=== PATIENT | male | born 1975 | race Caucasian/White ===

== ENCOUNTER 2016-09-29 15:44 | Inpatient (IN) | payer OTHER ==
--- NOTE | ~2016-09-29 | CR71 ---
[facility] A Service of [facility] & [facility] RADIOLOGY TEXT RESULTS PATIENT: KARLOS STEELE LOCATION: [place] [id number] : [birth year] UNIT #: [id number] AGE: [address]: Wally Acosta MD SEX: M ORDER DR: [id number] [place] [id number] [facility] [place] [facility]. [place], [place] [address] [id number] I MR#: [id number] Acc #: [id number] NAME: KARLOS STEELE : 1975 SEX: M STUDY DATE/TIME: 10/01/2016 6:38 UNIT: [facility] ROOM: [facility] STUDY DESCRIPTION: CR Chest Single View Attending Physician: Wally Acosta M.D. Ordering Physician: Lukas Arnold M.D. Primary Care Physician: No Primary Care Physician MEDICAL IMAGING REPORT This report is preliminary unless electronic signature is present EXAM Portable chest. INDICATION Respiratory failure, follow up endotracheal tube. Symptoms for 2 days. FINDINGS A portable view of the chest was obtained. The endotracheal tube and PIC catheter are stable. There are low lung volumes with mild basilar atelectasis and the heart size is normal. Dictated by... Logan Torres M.D. THIS IS AN ELECTRONICALLY VERIFIED REPORT Logan Torres M.D. at 10/01/2016 1:11 PM SHANTEL/jami TD: 10/01/2016 12:32 JOB #: [id number] MEDICAL IMAGING REPORT COPY
--- NOTE | ~2016-09-29 | EKG ---
PATIENT: KARLOS STEELE UNIT #: [id number] Ventricular Rate: 94 BPM Atrial Rate: 94 BPM P-R Interval: 154 ms QRS Duration: 94 ms Q-T Interval: 346 ms QTC Calculation(Bezet): 432 ms P [place]: 75 degrees Calculated R [place]: 79 degrees Calculated T [place]: 65 degrees Diagnosis Line: Normal sinus rhythm Diagnosis Line: Normal ECG Diagnosis Line: When compared with ECG of 12-DEC-2014 05:47, Diagnosis Line: No significant change was found Diagnosis Line: Confirmed by JUN PULLIAM MD ([id number]) on Diagnosis Line: 09/29/2016 5:26:57 PM INTERPRETING MD: ANDREW
--- NOTE | ~2016-09-29 | A ---
[facility] Nutrition Therapy DATE: 09/30/16 Patient: KARLOS STEELE Physician: MARCELINO Address: [facility] SURJIT TORRES Room/Bed: [address], Zip: [place] [address] Admit Date: 09/29/16 Date of : [birth year] Height: 5 8 Weight: 251 114 NUTRITIONAL ASSESSMENT: REASON: NPO STATUS IN ICU 41 yo male admitted for resuscitated arrest after OD PMH: Substance abuse, anxiety, depression, CHF Anthropometrics: Ht: 68" Wt: 113 kg BMI: 37.9 IBW: 70 kg Labs: Gluc 149 BUN 24 AST 51 ALT 58 Accuchecks 142-148 Meds: Versed, fentanyl, NaCl, novolog, lopressor, zofran, MgSO4, KCl, protonix I/O & Bowel function: 1917/1125, last BM 09/29 FMS Skin Integrity: No breakdown noted Edema: none noted Estimated Nutrition Needs: 5089-5562 kcals (12-15 kcals/kg) 105-140 grams protein (1.5-2.0 grams/kg) Assessment: Chart reviewed, events noted. Pt admitted for resuscitated arrest after OD. Pt is intubated and sedated in the ICU, with no nutrition support plans at this time. RD will provide enteral nutrition recommendations below. Dx: Inadequate nutrient intake RT clinical condition AEB NPO status. Intervention: 1. Enteral nutrition once medically feasible Monitoring, Evaluation and Goals: 1. Enteral nutrition; provide >80% goal volume x 24 hrs 2. Labs; WNL 3. Weight; prevent unintentional weight loss Recommendations: 1. Once medically feasible, would consider initiating enteral nutrition with Jevity 1.5 @ 20 mL/hr + 30 mL Prostat TID. Increase by 10 mL q 8 hrs as tolerated to goal of 40 mL/hr + 30 mL Prostat TID. This would provide: 1740 kcals/ 106 grams protein/ 730 mL free H20 [facility] Nutrition Therapy DATE: 09/30/16 Patient: KARLOS STEELE Physician: MARCELINO Address: [address] Room/Bed: [address], Zip: [place] [address] Admit Date: 09/29/16 Date of : [birth year] Height: 5 8 Weight: 251 114 2. If the pt is extubated, recommend SR ACCOUNT EXECUTIVE evaluation to determine if he can safely tolerate PO intake. Pt is at moderate-severe nutritional risk. RD will follow hospital course. Respectfully, DAINA ANNE RD, LD [employer] and [employer] [facility] cc: client file
--- NOTE | ~2016-09-29 | CR72 ---
[facility] A Service of [facility] RADIOLOGY TEXT RESULTS PATIENT: KARLOS STEELE [facility] [birth year] UNIT #: [id number] AGE: [address]: Oneida Pierre MD SEX: M ORDER DR: [id number] [facility] [address] [facility]. [place], [place] [address] [id number] E MR#: [id number] Acc #: [id number] NAME: KARLOS STEELE : 1975 SEX: M STUDY DATE/TIME: 09/29/2016 15:51 UNIT: [facility] ROOM: STUDY DESCRIPTION: CR Chest Single View Portable Attending Physician: Natanael Akers M.D. Ordering Physician: Natanael Akers M.D. Primary Care Physician: Primary Care Physician No MEDICAL IMAGING REPORT This report is preliminary unless electronic signature is present EXAM Portable chest HISTORY Intubation today. Respiratory failure. FINDINGS ETT tip is 6.5 cm above the kiko. Cardiac size and pulmonary vascularity are normal. Lungs are clear. No infiltrates or effusions. Dictated by... Hudson Spicer M.D. THIS IS AN ELECTRONICALLY VERIFIED REPORT Hudson Spicer M.D. at 09/29/2016 11:39 PM DFL/psc TD: 09/29/2016 19:10 JOB #: [id number] MEDICAL IMAGING REPORT COPY
--- NOTE | ~2016-09-29 | HP ---
Unit #: [id number] #: [id number] Patient: KARLOS STEELE [id number] [address] [place], [place] [address] [id number] E MR#: [id number] NAME: KARLOS STEELE ROOM: Age: 41 Sex: M Admission Date: 09/29/2016 : 1975 Attending Physician: Natanael Akers M.D. HISTORY AND PHYSICAL CHIEF COMPLAINT Altered mental status, resuscitated arrest. HISTORY OF PRESENT ILLNESS The patient is a 41-year-old male with a past medical history of substance abuse, CHF, anxiety, and depression, who presented to the emergency department for evaluation of the above. History is obtained from chart review and discussion with ER staff due to the patient's altered mental status. The patient was apparently found unresponsive by family. An empty pill bottle was found on the patient. Per the patient's friend and girlfriend at the bedside, the patient possibly took nine Xanax "footballs" and drank a couple of beers. Additionally, he snorted a point of heroin. It is unclear if he had any suicidal ideations. He received 1 mg of epinephrine, as well as 6 mg of Narcan and an amp of bicarbonate prior to arrival. Estimated down time was approximately 10 minutes. He was initially in asystole, followed by PEA. Upon arrival in the emergency department, the patient's temperature was 97, pulse 116, respirations 18, and blood pressure 240/140. CT of the head showed nothing acute. Chest x-ray showed nothing acute. Laboratory is notable for a lactic acid of 10.1, white blood cell count of 12.4, and potassium is 3. He is being admitted to [facility] for evaluation and further treatment. Of note, the patient has had no neurologic activity. He is not requiring any sedation. PAST MEDICAL HISTORY 1. Admission to [facility] December 09, 2014, for acute respiratory failure, aspiration pneumonia, and overdose. Toxicology screen at that time was positive for benzodiazepines, cocaine, and opiates. 2. Congestive heart failure. An echocardiogram on December 09, 2014, showed an ejection fraction of 15% to 20% with Doppler flow pattern suggestive of impaired left ventricular relaxation. Moderate to severe tricuspid regurgitation was also noted. He was seen by Dr. Tipton during that admission. 3. Depression and anxiety. PAST SURGICAL HISTORY None. Unit #: [id number] #: [id number] Patient: KARLOS STEELE SOCIAL HISTORY The patient smokes a pack of cigarettes daily. He has a history of alcohol and illicit drug use. FAMILY HISTORY Unobtainable. ALLERGIES No known allergies. HOME MEDICATIONS Unknown. REVIEW OF SYSTEMS A 10-point review of systems is unobtainable from the patient due to altered mental status. PHYSICAL EXAMINATION VITAL SIGNS: Temperature is 97, pulse 116, respirations 18, and blood pressure 240/140. GENERAL: Patient is a male who is completely unresponsive. HEENT: Head is atraumatic. Pupils are pinpoint and not reactive. Mucous membranes are moist. NECK: Supple. Trachea is midline. CARDIOVASCULAR: Regular rate and rhythm. LUNGS: Scattered rhonchi. ABDOMEN: Soft with bowel sounds present in all four quadrants. EXTREMITIES: Nontender with no pedal edema. NEUROLOGIC: Patient is completely unresponsive. He is not requiring any sedation. PSYCHIATRIC: Unable to assess. SKIN: Skin of examined areas is warm and dry. DIAGNOSTIC STUDIES LABORATORY: Complete blood count notable for white blood cell count of 12.4. Troponin is less than 0.05. Urinalysis is notable for 2+ protein, 100 glucose, and 1+ blood. INR is 1. Lactic acid 10.1. Urine toxicology screen is positive for benzodiazepines. Blood alcohol level is 19. Comprehensive metabolic panel is notable for a potassium of 3, bicarb is 15, anion gap is 22. AST and ALT are 46 and 61, respectively. Arterial blood gas shows a pH of 7.26, PCO2 of 31.8, and PO2 of 378 on assist control with an FIO2 of 100%. IMAGING: Chest x-ray shows no infiltrate. CT of the head shows nothing acute. CARDIOLOGY: EKG shows normal sinus rhythm with a rate of 94 beats per minute. ASSESSMENT The patient is a 41-year-old male with: 1. Status post resuscitated arrest with approximately 10 minutes of down time. The patient has not had any neurologic activity during his course in the emergency department. 2. Multiple substance overdose. The patient reportedly took Xanax, as well as drank a few beers and snorted heroin. His toxicology screen is positive for benzodiazepines. 3. Possible aspiration. Unit #: [id number] #: [id number] Patient: KARLOS STEELE 4. Hypokalemia. 5. Hyperglycemia. The patient does not have a known history of diabetes. 6. Transaminitis. 7. History of congestive heart failure with an ejection fraction of 10% to 15% noted in December 2014. PLAN 1. Admit to ICU. 2. Normal saline at 150 mL/hour. 3. N.p.o. 4. Serial cardiac enzymes. 5. Consult Dr. Gu regarding resuscitated arrest and vent management. 6. Consult Dr. Tipton regarding resuscitated arrest. 7. 72-hour hold, sitter, and consult Dr. Sosa if the patient is extubated and awake. 8. Blood cultures x2. 9. Sputum culture and sensitivity. 10. Procalcitonin level. 11. Zosyn 3.375 grams IV q.6 hours with first dose now. 12. Sepsis protocol with repeat lactic acid. 13. Check magnesium level. 14. Potassium/magnesium protocol. 15. Hemoglobin A1c. 16. Low-dose sliding scale insulin with Accu-Cheks. 17. Repeat labs in the morning including magnesium. 18. SCDs for DVT prophylaxis. 19. Protonix for GI prophylaxis. 20. Additional workup and consultants based on above. 21. Will discuss with the family when they are available. Thirty-eight (38) minutes critical care time spent in the care of this patient (6 p.m. to 6:38 p.m.). The patient's prognosis is extremely poor. Dictated by Grabiel Treadwell/sara TD: 09/29/2016 19:13 JOB #: [id number] HISTORY AND PHYSICAL X Oneida Pierre MD X HISTORY AND PHYSICAL
--- NOTE | ~2016-09-29 | CT71 ---
[facility] A Service of [facility] & [facility] RADIOLOGY TEXT RESULTS PATIENT: KARLOS STEELE LOCATION: [place] [address] : [birth year] UNIT #: [id number] AGE: [address]: Wally Acosta MD SEX: M ORDER DR: [id number] [facility] [address] [facility]. [place], [place] [address] [id number] I MR#: [id number] Acc #: [id number] NAME: KARLOS STEELE : 1975 SEX: M STUDY DATE/TIME: 10/01/2016 15:12 UNIT: [facility] ROOM: [facility] STUDY DESCRIPTION: CT Head Wo Contrast Attending Physician: Wally Acosta M.D. Ordering Physician: Guille Hughes M.D. Primary Care Physician: No Primary Care Physician MEDICAL IMAGING REPORT This report is preliminary unless electronic signature is present EXAM CT head without contrast, performed on 10/01/2016. HISTORY 41-year-old male with rest and with confusion. FINDINGS There is chapin sinusitis present with fluid in the frontal, ethmoid, sphenoid, and maxillary sinuses bilaterally as well as in the mastoid air cells. No middle ear opacity is seen. The osseous skull is otherwise intact. No midline shift is demonstrated, but diffuse loss of the luna-white matter interface appears present. Anoxic brain may be present. No ventricular enlargement is seen. Nuclear medicine flow study recommended for better evaluation. IMPRESSION Diffuse loss of the luna-white matter interface with diffuse anoxic injury suspected. Brain scan recommended for further evaluation. Dictated by... Kam Ramirez M.D. THIS IS AN ELECTRONICALLY VERIFIED REPORT Kam Ramirez M.D. at 10/02/2016 11:40 PM JANIE/meseret TD: 10/01/2016 18:43 JOB #: [id number] MEDICAL IMAGING REPORT COPY
--- NOTE | ~2016-09-29 | EKG ---
PATIENT: KARLOS STEELE UNIT #: [id number] Ventricular Rate: 116 BPM Atrial Rate: 116 BPM P-R Interval: 152 ms QRS Duration: 78 ms Q-T Interval: 312 ms QTC Calculation(Bezet): 433 ms P [place]: 61 degrees Calculated R [place]: 68 degrees Calculated T [place]: 57 degrees Diagnosis Line: Sinus tachycardia Diagnosis Line: Otherwise normal ECG Diagnosis Line: When compared with ECG of 29-SEP-2016 16:08, Diagnosis Line: No significant change was found Diagnosis Line: Confirmed by JOSÉ ANTONIO COOLEY MD ([id number]) on 10/02/2016 Diagnosis Line: 6:17:05 PM INTERPRETING MD: LENORA MARES
--- NOTE | ~2016-09-29 | EE ---
Unit #: [id number] #: [id number] Patient: KARLOS STEELE [id number] [address] [address] [id number] I MR#: [id number] NAME: KARLOS STEELE : 1975 SEX: M STUDY DATE/TIME: 09/30/2016 UNIT: [facility] ROOM: [facility] STUDY DESCRIPTION: EEG Attending Physician: Wally Acosta M.D. Primary Care Physician: No Primary Care Physician NEURODIAGNOSTICS REPORT EXAM EEG REASON FOR THE STUDY The patient was found down with decreased level of consciousness. EEG to rule out seizure or status. Brain protocol was not used. EEG DESCRIPTION This is an inpatient, portable, digitally recorded multi-montage adult EEG with leads placed according to the International 10-20 System. Hyperventilation and photic stimulation was not done. This is a very low amplitude, diffusely slow recording with significant beta and movement artifact. There seemed to be an artifact mostly around O1 because I could see it between T5 and O1 and P3 and O1. It may be a rocking type movement artifact about 2 Hz. The background is very low amplitude and mostly 2 to 3 Hz. I did not see any seizure, I did not see any status. There was some subtle slowing or muscle movement on the right side in the temporal leads but, again, tachycardia close to 120 to 150 and beyond that nothing suggesting reactivity, seizure, status or interictal discharges. No clinical events were seen. IMPRESSION Suboptimal EEG with very low amplitude, diffusely slow with some muscle and beta artifact, very nonspecific. Nothing suggesting seizure or status. This was not brain protocol so clinical correlation is recommended. Dictated by... Grabiel Benito/dari TD: 10/02/2016 07:17 JOB #: [id number] Unit #: [id number] #: [id number] Patient: KARLOS STEELE NEURODIAGNOSTICS REPORT X Guille Hughes MD NEURODIAGNOSTICS REPORT
--- NOTE | ~2016-09-29 | CO ---
Unit #: [id number] #: [id number] Patient: KARLOS STEELE [id number] [place], [place] [address] [id number] I MR#: [id number] NAME: KARLOS STEELE ROOM: [facility] Age: 41 Sex: M Admission Date: 09/29/2016 : 1975 Attending Physician: Wally Acosta M.D. Primary Care Physician: No Primary Care Physician CONSULTATION REPORT REASON FOR CONSULTATION Critical care management, respiratory failure. CHIEF COMPLAINT Drug overdose. HISTORY OF PRESENT ILLNESS Patient was brought in via [facility] with the complaint of drug overdose. He and his friend did some heroin, according to the patient's girlfriend standing at the bedside. I am seeing the patient at the bedside. The patient is currently unresponsive, on the ventilator. REVIEW OF SYSTEMS Unobtainable. PAST MEDICAL HISTORY 1. Aspiration pneumonia. 2. Drug overdose. 3. Acute kidney injury. 4. Biventricular heart failure. 5. Anxiety and depression. SOCIAL HISTORY Positive for drug abuse. FAMILY HISTORY None per records. PHYSICAL EXAMINATION VITAL SIGNS: Temperature 98, pulse 80, respirations 12, blood pressure 130/70. NEUROLOGIC: Unresponsive. CVS: S1, S2. RESPIRATORY: Bilateral air entry. Bilateral mild rhonchi. GI: Nontender. Soft. Bowel sounds are positive. EXTREMITIES: No edema. SKIN: No rashes, no ulcer. LYMPHATIC: No lymphadenopathy. DIAGNOSTIC STUDIES Labs and imaging have been reviewed. ASSESSMENT 1. Drug overdose. Unit #: [id number] #: [id number] Patient: KARLOS STEELE 2. Acute respiratory failure. 3. Hypokalemia. 4. Questionable anoxic brain injury. 5. Likely aspiration. 6. Lactic acidosis. PLAN At this point, plan is to continue the patient on ventilator support. IV fluids. Broad-spectrum IV antibiotics. GI and DVT prophylaxis. Neurology consultation will be needed. Will continue to monitor. Prognosis is very poor. Order troponin and two-D echo, as well. Continue current ICU core measures. Discussed with the patient's girlfriend at the bedside prognosis very poor. NOTE: Total critical care time is 50 minutes in direct critical care of this patient. Dictated by... SaGrabiel Fritz TD: 09/30/2016 09:30 JOB #: [id number] CONSULTATION REPORT X Radha Gu MD CONSULTATION REPORT
--- NOTE | ~2016-09-29 | CO ---
Unit #: [id number] #: [id number] Patient: KARLOS STEELE [id number] [place] [address] [facility]. [place], [place] [address] [id number] I MR#: [id number] NAME: KARLOS STEELE ROOM: [facility] Age: 41 Sex: M Admission Date: 09/29/2016 : 1975 Attending Physician: Wally Acosta M.D. Primary Care Physician: Primary Care Physician No Consultation Date: 09/30/2016 CONSULTATION REPORT DICTATED FOR [facility], Dr. Kenny. REASON FOR CONSULTATION Resuscitated arrest. HISTORY OF PRESENT ILLNESS The patient is a 41-year-old white male, who is known to our group from a previous admission. The patient has a medical history of questionable CHF in the echo and cath reports from 2015 are not are contradicting. The patient also has a history of GERD, anxiety, depression, and ADHD. The patient presented to the [facility] ED after he had overdosed on heroin. The patient is intubated and sedated and unable to provide any information, therefore, all information obtained from the girlfriend as well as chart review. Girlfriend states that she got a call around 3:15 p.m. yesterday from the patient's friend, who was with him at that time, stating that the patient had to be taken to the hospital due to an overdose. The patient's friend states that yesterday morning he took approximately 9 Xanax and drinks couple of beers and then he snorted heroin and apparently snorted a large quantity. He also reportedly told his friend that if he were to pass out or go down, he did not want to be resuscitated. The patient's friend then stated that the patient turned blue and he did not have a phone on him to call EMS at that time, therefore, he reportedly had to go to 3 or 4 different neighbor's houses to obtain a phone to call EMS. The downtime was reported as 10 minutes. Once EMS arrived, the patient was found to be in asystole and then PEA, but was resuscitated and brought to the hospital. The patient is currently on the ventilator, not sedated and not following any kind of commands. Last known echo was in 2014, which at that time, showed an EF of 15% to 20% with 3 to 4+ TR, 1 to 2+ MR, as well as left atrial enlargement. Cardiac cath done at that time, showed no coronary artery disease. PAST MEDICAL HISTORY 1. Questionable CHF. 2. Anxiety. 3. Depression. 4. ADHD. 5. GERD. PAST SURGICAL HISTORY None. Unit #: [id number] #: [id number] Patient: KARLOS STEELE SOCIAL HISTORY The patient is a smoker one pack per day for 26 years. The patient does drink one time a week, but not a daily drinker. The patient does use multiple drugs such as opiates and benzodiazepine, has a history of using cocaine, the girlfriend does not believe he has used any recently and this is his fifth time using heroin according to the girlfriend. The patient's last heroin use she thinks was approximately 2 years ago when he also overdosed at that time and was brought into the hospital. FAMILY HISTORY The patient's dad in his 30s from possible aneurysm. No other family history of heart disease known. REVIEW OF SYSTEMS Unable to obtain from the patient at this time due to being on the ventilator. PHYSICAL EXAMINATION GENERAL: This is a 41-year-old white male, who is on the ventilator and not responding to commands. VITAL SIGNS: Blood pressure 174/100, temperature 101.8, pulse 123, respirations 33. HEENT: Pupils are small and they do not dilate and do not follow, do not track. HEART: S1 and S2. No S3 or S4. No clicks, no rubs, no murmurs. LUNGS: Rhonchi throughout. ABDOMEN: Soft. Bowel sounds positive. Nondistended. EXTREMITIES: No swelling noted. NEUROLOGIC: The patient is not sedated, but not following any commands currently. ALLERGIES No known drug allergies. HOME MEDICATIONS None are listed on the chart. DIAGNOSTIC STUDIES LABORATORY RESULTS: Include white count of 22.4, hemoglobin 15.5, hematocrit 46.5, platelets 158. Sodium 137, potassium 4.4, chloride 105, CO2 of 21, BUN 24, creatinine 0.9, glucose 149. Mag 1.9. Troponins less than 0.05 then 0.10 then 0.89 then 0.67. Then, lactic of 3.9. UA was positive for benzos. IMAGING STUDIES: CT of the head was negative for any acute findings. Chest x-ray, lungs are clear. CARDIOVASCULAR STUDIES: EKG showed normal sinus rhythm. IMPRESSION 1. Resuscitated arrest. 2. Drug overdose. 3. Non-ST segment myocardial infarction. 4. Anxiety and depression. 5. Multiple substance overdose and multiple overdose attempts. 6. Polysubstance abuse. 7. Tobacco abuse. Unit #: [id number] #: [id number] Patient: KARLOS STEELE PLAN For now, we will check 2D echo for any LV dysfunction or valvular abnormalities. The ICU team is to manage the blood pressure at this time. We will plan to recheck labs in the morning. For now, we will plan with supportive care, it is likely that the non-STEMI is related to the cardiac arrest and shock. Once the patient stabilizes and is further recovered may consider ischemic workup if necessary. Further recommendations pending physician review. Dictated by... ANNIKA Pope TD: 09/30/2016 23:07 JOB #: [id number] CC: Rohit Kenny MD, Resident CONSULTATION REPORT X X CONSULTATION REPORT
--- NOTE | ~2016-09-29 | CR72 ---
[facility] A Service of [facility] & [facility] RADIOLOGY TEXT RESULTS PATIENT: KARLOS STEELE LOCATION: [address] : [birth year] UNIT #: [id number] AGE: [address]: Wally Acosta MD SEX: M ORDER DR: [id number] [facility] [address]. [place], [place] [address] [id number] I MR#: [id number] Acc #: [id number] NAME: KARLOS STEELE : 1975 SEX: M STUDY DATE/TIME: 09/30/2016 16:39 UNIT: [facility] ROOM: [facility] STUDY DESCRIPTION: CR Chest Single View Portable Attending Physician: Wally Acosta M.D. Ordering Physician: Lukas Arnold M.D. Primary Care Physician: Primary Care Physician No MEDICAL IMAGING REPORT This report is preliminary unless electronic signature is present EXAM Single portable AP view of the chest performed on 09/30/2016 at 1639 hours. HISTORY 41-year-old male with desaturation and heroin overdose. FINDINGS In comparison to the previous exam of 09/30/2016 at 0333 hours, there has been development of some interstitial edema bilaterally. The endotracheal tube remains stable, approximately 6 cm above the kiko, and an enteric tube is also again seen, with its tip just in the fundal region of the stomach. A PICC line has been placed on the right, with its distal tip in the SVC. No pneumothorax is noted. IMPRESSION 1. Worsening vascular congestion and pulmonary edema. 2. Placement of a right-sided PICC line with the distal tip in the SVC. 3. Stable endotracheal tube and enteric tube. Dictated by... Kam Ramirez M.D. THIS IS AN ELECTRONICALLY VERIFIED REPORT Kam Ramirez M.D. at 10/01/2016 5:34 PM JANIE/samson TD: 09/30/2016 22:27 JOB #: [id number] MEDICAL IMAGING REPORT COPY
--- NOTE | ~2016-09-29 | CR72 ---
[facility] A Service of [facility] & [facility] RADIOLOGY TEXT RESULTS PATIENT: KARLOS STEELE LOCATION: [address] : [birth year] UNIT #: [id number] AGE: [address]: Wally Acosta MD SEX: M ORDER DR: [id number] [facility] [address]. [place], [place] [address] [id number] I MR#: [id number] Acc #: [id number] NAME: KARLOS STEELE : 1975 SEX: M STUDY DATE/TIME: 09/30/2016 UNIT: [facility] ROOM: [facility] STUDY DESCRIPTION: CR Chest Single View Portable Attending Physician: Oneida Pierre M.D. Ordering Physician: Natanael Akers M.D. Primary Care Physician: Primary Care Physician No MEDICAL IMAGING REPORT This report is preliminary unless electronic signature is present EXAM Portable chest 09/30 03:33 INDICATIONS Overdose. Resuscitated arrest. FINDINGS AP portable chest compared with 12/10/1916. ET tube tip is in the mid trachea. NG tube is present with the side port at the level of the GE junction. Heart size stable. There is mild infiltrate or atelectasis in both bases. No pneumothorax. Dictated by... Burton Thomas Jr., M.D. THIS IS AN ELECTRONICALLY VERIFIED REPORT Burton Thomas Jr., M.D. at 09/30/2016 9:59 PM EDGARK/marquez TD: 09/30/2016 07:41 JOB #: [id number] MEDICAL IMAGING REPORT COPY
--- NOTE | ~2016-09-29 | CO ---
Unit #: [id number] #: [id number] Patient: KARLOS STEELE [id number] [facility] [address] [facility]. [place], [place] [address] [id number] I MR#: [id number] NAME: KARLOS STEELE ROOM: [facility] Age: 41 Sex: M Admission Date: 09/29/2016 : 1975 Attending Physician: Wally Acosta M.D. 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 PATIENT IDENTIFICATION This is a 41-year-old right-handed white male who is evaluated in ICU bed 16 at [facility]. SOURCE OF INFORMATION The medical records and my discussion with Dr. Arnold, and also my discussion with the patient's mom, the medical records, and the admitting team records. PROBLEM LIST 1. Polysubstance abuse. 2. History of prior overdose. 3. History of aspiration pneumonia. 4. History of respiratory failure because of polysubstance abuse. 5. History of congestive heart failure. 6. Depression and anxiety. 7. Apparently he is ADHD. 8. Tobacco abuse. 9. Alcohol abuse. 10. Now with hypoxic and ischemic encephalopathy. HISTORY OF PRESENT ILLNESS This is a 41-year-old male with a history of substance abuse, congestive heart failure, anxiety and depression, presented to the emergency room because he was found down. He was with his friends and he apparently took nine Xanax "footballs" and drank a couple of beers and then he snorted what they thought was heroin. Then he collapsed and he had told his friend that he does not want to be resuscitated but the friend then panicked and started going from door to door to seek some help and finally EMS was called. He was found unresponsive. He was brought in and he was intubated. He was on a ventilator. His downtime was ten minutes or more, considering that his friend went three to four different neighbors to try to get some help. When EMS arrived he was in systole and then PEA. He was resuscitated and brought to the hospital. He is on sedation right now. Except for some minimal gap type movements and possible triggering the vent, he has had no purposeful movements. He already had EEG done and the EEG showed mostly artifact but nothing suggesting seizure or status. His labs also are not really bad. His first set of labs is around 3:00 p.m. on 09/29/2016. Unit #: [id number] #: [id number] Patient: KARLOS STEELE No seizure or seizure-like activity. He had some tremors and he ended up on Keppra. He has not had any sedation since yesterday. He does see a practice nurse as an outpatient. His urine drug screen was positive for benzodiazepines and alcohol level was 19. PAST MEDICAL HISTORY As discussed above. PAST SURGICAL HISTORY Nothing major known to us. ALLERGIES None known to use. HOME MEDICATIONS Apparently we do not know any, whether he is following up with practice nurse and taking any medication. FAMILY HISTORY Mother does not report any major contributory problems. The father did have an aneurysm. SOCIAL HISTORY He apparently is single. He does drink once a week. Maybe some binge drinking. He has prior history of opiates and benzodiazepine use and has used cocaine in the past. REVIEW OF SYSTEMS Could not be obtained. PHYSICAL EXAMINATION VITAL SIGNS: Temperature is 100.8, pulse 105, respirations 26, blood pressure 112/61. No pain was reported. O2 sats were 100%. Weight of 225 pounds. When he came in his temperature was 97 degrees Fahrenheit, pulse was 116, respiration 18, blood pressure was 240/140. NEUROLOGICAL EXAMINATION: The patient has probably a Les Coma scale of 3T. There was questionable spontaneous gag type movement with some shoulder shrug type activity but I could not reproduce it with gagging him. No cough spontaneous. Obviously he is not following commands. Obvious nonverbal. CRANIAL NERVE EXAMINATION: Pupils are about 1.5 mm. (1) eye movements seem to be fixed, midline. No doll's eyes. No corneals. No ptosis. No nystagmus. Sensation on the face and scalp was absent. I did not see any facial asymmetry. Hearing is questionable. Tongue was midline. I could not visualize his oropharynx or uvula. Head turning was not seen. MOTOR EXAMINATION: I did not see any responses of any kind. SENSORY EXAMINATION: I did not see any responses of any kind. I could not get any reflexes. Toes are mute. Unit #: [id number] #: [id number] Patient: KARLOS STEELE GAIT AND COORDINATION: Could not be evaluated. DIAGNOSTIC STUDIES LABS: BUN is 24, creatinine 1.0. White count is 16.8, platelets 126. Urine drug screen was positive for benzodiazepine. Alcohol level was 19. IMAGING STUDIES: Head CT was unremarkable. NEUROLOGY STUDIES: EEG showed some slowing and artifact. IMPRESSION Likely hypoxic and anoxic encephalopathy, likely polysubstance abuse related. He may have taken something other than heroin and maybe something else, which we are unable to see on his testing. His EEG does no show seizure or status. He was brought in at 13:08 on 09/29/2016 so today is going to be 48 hours and I have discussed the case with the team in very detail. His mother would like to give him another day and see how things go. She would want to have repeat study done. It looks like he was down for quite some time. There is nothing suggesting active seizure or status or major stroke. Patient's with such condition with labs not really totally abnormal and they do not respond in 72 hours, despite (2) circulation support, they are poor prognostic picture. Most people do not make it and if they make it they are in persistent vegetative state. In the meantime if condition changes we will evaluate and treat accordingly. I will check a repeat CT and we will go from there. Keep you informed. Call if you have any other questions or concerns. Further treatment will be based on our findings and I am really concerned about the very poor prognostic picture but for followup, call if you have any other questions or concerns. Dictated by... Grabiel Benito/salas TD: 10/01/2016 13:07 JOB #: [id number] CONSULTATION REPORT X Guille Hughes MD CONSULTATION REPORT
--- NOTE | ~2016-09-29 | CT71 ---
[facility] A Service of [facility] RADIOLOGY TEXT RESULTS PATIENT: KARLOS STEELE LOCATION: [facility]3-16 : [birth year] UNIT #: [id number] AGE: [address]: Oneida Pierre MD SEX: M ORDER DR: [id number] [facility] [address]. [place], [place] [address] [id number] E MR#: [id number] Acc #: [id number] NAME: KARLOS STEELE : 1975 SEX: M STUDY DATE/TIME: 09/29/2016 16:46 UNIT: [facility] ROOM: STUDY DESCRIPTION: CT Head Wo Contrast Attending Physician: Natanael Akers M.D. Ordering Physician: Natanael Akers M.D. Primary Care Physician: Primary Care Physician No MEDICAL IMAGING REPORT This report is preliminary unless electronic signature is present EXAM CT brain without contrast HISTORY Loss of consciousness today. Decreased level of responsiveness. Drug overdose. TECHNIQUE This CT exam was performed with one or more of the following radiation dose reduction techniques: Automatic exposure control, adjustment of mA and/or kV according to patient size, and iterative reconstruction. FINDINGS CT brain without contrast demonstrates no intracranial hemorrhage, mass or edema. No midline shift or ventricular dilatation. No extraaxial fluid collection. Mild mucosal thickening in ethmoid air cells and in the sphenoid sinus bilaterally. IMPRESSION No acute intracranial findings. Dictated by... Hudson Spicer M.D. THIS IS AN ELECTRONICALLY VERIFIED REPORT Hudson Spicer M.D. at 09/29/2016 11:39 PM DFL/psc TD: 09/29/2016 19:30 JOB #: [id number] MEDICAL IMAGING REPORT [facility] A Service [facility] RADIOLOGY TEXT RESULTS PATIENT: KARLOS STEELE LOCATION: [facility]3-16 : [birth year] UNIT #: [id number] AGE: [address]: Oneida Pierre MD SEX: M ORDER DR: COPY
[~2016-09-29 15:44] MED LIST: CLEOCIN PO; COREG3.125 MG PO; LISINOPRIL2.5 MG PO
[2016-09-29 15:48] LABS: BASOPHIL# 0.1 X10e3 (0-0.3); BASOPHIL% 0.5 % (0-2.5); EOSINOPHIL# 0.1 X10e3 (0-0.7); EOSINOPHIL% 0.7 % (0.0-7.0); HEMATOCRIT 47.3 % (38.0-50.0); HEMOGLOBIN 15.5 gm/dL (13.0-16.0); LYMPHOCYTE# 4.1 X10e3 (1.0-3.5); LYMPHOCYTE% 32.7 % (17.0-45.0); MEAN CELL VOLUME 93.2 FL (83-96); MEAN CORPUSCULAR HEMOGLOBIN 30.5 PG (28-34); MEAN CORPUSCULAR HGB CONC 32.7 g/dL (30-36); MEAN PLATELET VOLUME 9.7 FL (6.5-11.5); MONOCYTE# 0.8 X10e3 (0-1.0); MONOCYTE% 6.6 % (3.0-12.0); NEUTROPHIL# 7.4 X10e3 (1.5-7.1); NEUTROPHIL% 59.5 % (40-75); PLATELET COUNT 159 X10e3 (140-420); RED BLOOD COUNT 5.08 X10e (3.90-5.60); RED CELL DISTRIBUTION WIDTH 13.2 % (11.0-15.5); WHITE BLOOD COUNT 12.4 X10e3 (4.0-10.5)
[2016-09-29 15:49] LABS: URINE SOURCE CLEAN CATCH
[2016-09-29 15:51] LABS: DIFF IND NO
[2016-09-29 15:53] LABS: POC - CKMB 2.4 ng/mL (0.0-7.9); POC - TROPONIN <0.05 ng/mL (<=0.05)
[2016-09-29 15:55] LABS: URINE APPEARANCE CLEAR; URINE BILIRUBIN NEG (NEG); URINE BLOOD 1+ (NEG); URINE COLOR YELLOW; URINE GLUCOSE 100 MG/DL (NEG); URINE KETONE NEG (NEG); URINE LEUKOCYTE ESTERASE NEG (NEG); URINE NITRATE NEG (NEG); URINE PH 6.5 (5-8); URINE PROTEIN 2+ (NEG); URINE SPECIFIC GRAVITY 1.008 (1.003-1.035); URINE UROBILINOGEN 0.2 MG/DL (NEG)
[2016-09-29 15:58] LABS: URBCS1 AUWI 0-2 /[HPF] (0-2); URINE BACTERIA AUWI NEG (NEGATIVE); URINE SQUAMOUS EPITHELIAL CELL FEW /[HPF]
[2016-09-29 16:01] LABS: CULTURE INDICATED? NO
[2016-09-29 16:03] LABS: PARTIAL THROMBOPLASTIN TIME 26.5 SECONDS (23.5-31.3); PROTHROMBIN TIME (PATIENT) 10.7 SECONDS (9.6-11.5)
[2016-09-29 16:08] LABS: AMPHETAMINE NEG (NEG); BARBITURATES NEG (NEG); BENZODIAZEPINES POS (NEG); COCAINE NEG (NEG); MARIJUANA NEG (NEG); OPIATES NEG (NEG); TRICYCLIC ANTIDEPRESSANTS NEG (NEG); U METHADONE NEG (NEG)
[2016-09-29 16:13] LABS: ALBUMIN SERUM 4.1 g/dL (3.5-5.0); ALKALINE PHOSPHATASE 79 U/L (32-92); ALT (SGPT) 61 U/L (10-40); AST (SGOT) 46 U/L (10-42); BILIRUBIN, DIRECT 0.1 mg/dL (0.0-0.2); BILIRUBIN,INDIRECT 0.6 mg/dL (0.0-0.9); BILIRUBIN,TOTAL 0.7 mg/dL (0.2-2.0); BLOOD UREA NITROGEN 18 mg/dL (9-23); CALCIUM SERUM 8.7 mg/dL (8.4-10.2); CARBON DIOXIDE 15 mmol/L (22-31); CHLORIDE 101 mmol/L (100-111); CREATININE SERUM 1.2 mg/dL (0.6-1.4); GLOM FILT RATE Estimated ABOVE60 mL/min (>60); GLUCOSE FASTING 243 mg/dL (70-110); PROTEIN TOTAL SERUM 7.3 g/dL (6.0-8.3); SODIUM 138 mmol/L (135-145)
[2016-09-29 16:20] LABS: ARTERIAL BLD GAS O2 SATURATION 97.5 % (90.0-100.0); ARTERIAL BLOOD GAS CARBOXY HB 1.3 %sat (0.0-9.0); ARTERIAL BLOOD GAS HCO3 14.4 mmol/L; ARTERIAL BLOOD GAS MET HB 1.1 %sat (0.0-2.0); ARTERIAL BLOOD GAS PCO2 31.8 mmHg (35.0-45.0); ARTERIAL BLOOD GAS pH 7.264 (7.350-7.450)
[2016-09-29 16:22] LABS: ARTERIAL BLOOD GAS ALLEN TEST NORMAL; ARTERIAL BLOOD GAS ART SITE RIGHT RADIAL; ARTERIAL BLOOD GAS VENT MODE A/C; ARTERIAL DRAW? YES
[2016-09-29 17:42] LABS: POC - CKMB 4.8 ng/mL (0.0-7.9); POC - TROPONIN 0.1 ng/mL (<=0.05)
[2016-09-30 01:18] LABS: %MB 4.7 % (0.0-4.0); MB 9.2 ng/ml
[2016-09-30 04:04] LABS: ARTERIAL BLD GAS O2 SATURATION 95.9 % (90.0-100.0); ARTERIAL BLOOD GAS CARBOXY HB 0.3 %sat (0.0-9.0); ARTERIAL BLOOD GAS MET HB 0.7 %sat (0.0-2.0); ARTERIAL BLOOD GAS PCO2 30.8 mmHg (35.0-45.0); ARTERIAL BLOOD GAS pH 7.443 (7.350-7.450)
[2016-09-30 04:09] LABS: ARTERIAL BLOOD GAS ALLEN TEST NORMAL; ARTERIAL BLOOD GAS PO2 77.1 mmHg (80.0-100); ARTERIAL DRAW? YES
[2016-09-30 04:10] LABS: ARTERIAL BLOOD GAS ART SITE RIGHT RADIAL; ARTERIAL BLOOD GAS DELIVERY VENT; ARTERIAL BLOOD GAS VENT MODE A/C
[2016-09-30 04:11] LABS: BASOPHIL# 0.1 X10e3 (0-0.3); BASOPHIL% 0.4 % (0-2.5); DIFF IND YES; HEMATOCRIT 46.5 % (38.0-50.0); HEMOGLOBIN 15.5 gm/dL (13.0-16.0); LYMPHOCYTE# 0.8 X10e3 (1.0-3.5); LYMPHOCYTE% 3.5 % (17.0-45.0); MEAN CELL VOLUME 90.2 FL (83-96); MEAN CORPUSCULAR HGB CONC 33.3 g/dL (30-36); MEAN PLATELET VOLUME 9.2 FL (6.5-11.5); MONOCYTE# 0.7 X10e3 (0-1.0); MONOCYTE% 3.3 % (3.0-12.0); NEUTROPHIL# 20.8 X10e3 (1.5-7.1); NEUTROPHIL% 92.8 % (40-75); PLATELET COUNT 158 X10e3 (140-420); RED BLOOD COUNT 5.15 X10e (3.90-5.60); RED CELL DISTRIBUTION WIDTH 13.4 % (11.0-15.5); WHITE BLOOD COUNT 22.4 X10e3 (4.0-10.5)
[2016-09-30 04:22] LABS: INR 1.1; PARTIAL THROMBOPLASTIN TIME 25.9 SECONDS (23.5-31.3); PROTHROMBIN TIME (PATIENT) 11.2 SECONDS (9.6-11.5)
[2016-09-30 04:53] LABS: %MB 4.2 % (0.0-4.0); MB 9.9 ng/ml
[2016-09-30 05:02] LABS: PLATELET ESTIMATE NORMAL (NORMAL)
[2016-09-30 05:31] LABS: ALBUMIN SERUM 3.7 g/dL (3.5-5.0); ALKALINE PHOSPHATASE 70 U/L (32-92); ALT (SGPT) 58 U/L (10-40); AST (SGOT) 51 U/L (10-42); BILIRUBIN,TOTAL 0.8 mg/dL (0.2-2.0); BLOOD UREA NITROGEN 24 mg/dL (9-23); BUN/CREATININE RATIO 26.66; CALCIUM SERUM 8.5 mg/dL (8.4-10.2); CARBON DIOXIDE 21 mmol/L (22-31); CHLORIDE 105 mmol/L (100-111); CREATININE SERUM 0.9 mg/dL (0.6-1.4); GLOM FILT RATE Estimated ABOVE60 mL/min (>60); GLUCOSE FASTING 149 mg/dL (70-110); MAGNESIUM 1.9 mg/dL (1.6-3.0); POTASSIUM 4.4 mmol/L (3.5-5.1); PROTEIN TOTAL SERUM 6.6 g/dL (6.0-8.3); SODIUM 137 mmol/L (135-145)
[2016-09-30 16:18] LABS: ARTERIAL BLD GAS O2 SATURATION 92.5 % (90.0-100.0); ARTERIAL BLOOD GAS ALLEN TEST NORMAL; ARTERIAL BLOOD GAS ART SITE RIGHT RADIAL; ARTERIAL BLOOD GAS CARBOXY HB 0.3 %sat (0.0-9.0); ARTERIAL BLOOD GAS DELIVERY VENT; ARTERIAL BLOOD GAS HCO3 21.4 mmol/L; ARTERIAL BLOOD GAS MET HB 0.7 %sat (0.0-2.0); ARTERIAL BLOOD GAS PCO2 35.9 mmHg (35.0-45.0); ARTERIAL BLOOD GAS VENT MODE AC; ARTERIAL BLOOD GAS pH 7.383 (7.350-7.450); ARTERIAL DRAW? YES
[2016-10-01 04:47] LABS: ARTERIAL BLD GAS O2 SATURATION 97.9 % (90.0-100.0); ARTERIAL BLOOD GAS CARBOXY HB 0.2 %sat (0.0-9.0); ARTERIAL BLOOD GAS MET HB 0.8 %sat (0.0-2.0); ARTERIAL BLOOD GAS PCO2 40.3 mmHg (35.0-45.0); ARTERIAL BLOOD GAS pH 7.383 (7.350-7.450)
[2016-10-01 04:59] LABS: ARTERIAL BLOOD GAS ALLEN TEST NORMAL; ARTERIAL BLOOD GAS ART SITE LEFT RADIAL; ARTERIAL BLOOD GAS DELIVERY VENT; ARTERIAL BLOOD GAS VENT MODE AC; ARTERIAL DRAW? YES
[2016-10-01 05:52] LABS: BASOPHIL% 0.3 % (0-2.5); HEMATOCRIT 41.6 % (38.0-50.0); LYMPHOCYTE# 1.3 X10e3 (1.0-3.5); LYMPHOCYTE% 7.5 % (17.0-45.0); MEAN CELL VOLUME 90.3 FL (83-96); MEAN CORPUSCULAR HEMOGLOBIN 30.3 PG (28-34); MEAN CORPUSCULAR HGB CONC 33.6 g/dL (30-36); MEAN PLATELET VOLUME 9.4 FL (6.5-11.5); MONOCYTE# 1.5 X10e3 (0-1.0); MONOCYTE% 8.9 % (3.0-12.0); NEUTROPHIL% 83.3 % (40-75); PLATELET COUNT 126 X10e3 (140-420); RED BLOOD COUNT 4.61 X10e (3.90-5.60); RED CELL DISTRIBUTION WIDTH 13.4 % (11.0-15.5); WHITE BLOOD COUNT 16.8 X10e3 (4.0-10.5)
[2016-10-01 05:58] LABS: DIFF IND NO
[2016-10-01 06:16] LABS: BLOOD UREA NITROGEN 24 mg/dL (9-23); CALCIUM SERUM 8.2 mg/dL (8.4-10.2); CARBON DIOXIDE 23 mmol/L (22-31); CHLORIDE 110 mmol/L (100-111); GLOM FILT RATE Estimated ABOVE60 mL/min (>60); GLUCOSE FASTING 141 mg/dL (70-110); MAGNESIUM 2.1 mg/dL (1.6-3.0); POTASSIUM 4.1 mmol/L (3.5-5.1); SODIUM 139 mmol/L (135-145)
[2016-10-02 04:40] LABS: ARTERIAL BLD GAS O2 SATURATION 99.1 % (90.0-100.0); ARTERIAL BLOOD GAS HCO3 26.8 mmol/L; ARTERIAL BLOOD GAS MET HB 0.8 %sat (0.0-2.0); ARTERIAL BLOOD GAS PCO2 40.5 mmHg (35.0-45.0); ARTERIAL BLOOD GAS pH 7.429 (7.350-7.450)
[2016-10-02 05:04] LABS: ARTERIAL BLOOD GAS ALLEN TEST NORMAL; ARTERIAL BLOOD GAS ART SITE LEFT RADIAL; ARTERIAL BLOOD GAS DELIVERY VENT; ARTERIAL BLOOD GAS VENT MODE AC; ARTERIAL DRAW? YES
[2016-10-02 06:14] LABS: BLOOD UREA NITROGEN 25 mg/dL (9-23); BUN/CREATININE RATIO 27.77; CALCIUM SERUM 8.6 mg/dL (8.4-10.2); CARBON DIOXIDE 26 mmol/L (22-31); CHLORIDE 111 mmol/L (100-111); CREATININE SERUM 0.9 mg/dL (0.6-1.4); GLOM FILT RATE Estimated ABOVE60 mL/min (>60); GLUCOSE FASTING 121 mg/dL (70-110); MAGNESIUM 2.1 mg/dL (1.6-3.0); POTASSIUM 3.9 mmol/L (3.5-5.1); SODIUM 147 mmol/L (135-145)
[2016-10-03 04:51] LABS: ARTERIAL BLD GAS O2 SATURATION 98.4 % (90.0-100.0); ARTERIAL BLOOD GAS CARBOXY HB 0.4 %sat (0.0-9.0); ARTERIAL BLOOD GAS HCO3 26.5 mmol/L; ARTERIAL BLOOD GAS PCO2 38.4 mmHg (35.0-45.0); ARTERIAL BLOOD GAS pH 7.448 (7.350-7.450)
[2016-10-03 05:05] LABS: ARTERIAL BLOOD GAS ALLEN TEST NORMAL; ARTERIAL BLOOD GAS ART SITE LEFT RADIAL; ARTERIAL BLOOD GAS DELIVERY VENT; ARTERIAL BLOOD GAS VENT MODE AC; ARTERIAL DRAW? YES
[2016-10-03 07:13] LABS: BLOOD UREA NITROGEN 29 mg/dL (9-23); BUN/CREATININE RATIO 32.22; CARBON DIOXIDE 26 mmol/L (22-31); CHLORIDE 116 mmol/L (100-111); CREATININE SERUM 0.9 mg/dL (0.6-1.4); GLOM FILT RATE Estimated ABOVE60 mL/min (>60); GLUCOSE FASTING 115 mg/dL (70-110); MAGNESIUM 2.2 mg/dL (1.6-3.0); POTASSIUM 3.7 mmol/L (3.5-5.1); SODIUM 152 mmol/L (135-145)
[2016-10-04 07:59] LABS: HA AB IGM (HEPPAN) Nonreactive (Nonreactive); HB CORE AB IGM (HEPPAN) Nonreactive (Nonreactive); HB S AG (HEPPAN) Nonreactive (Nonreactive); HEP C AB (HEPPAN) Nonreactive (Nonreactive); HEP C AB SIGNAL TO CUTOFF 0.04 ratio (<1.00)
[2016-10-04 08:06] LABS: MAGNESIUM 2.2 mg/dL (1.6-3.0); POTASSIUM 3.2 mmol/L (3.5-5.1)
== END 2016-10-05 19:59 | disposition expired | DRG 917 ==
LOC: CED 15:44 → CEDOF 18:35 → CICCU3 21:16 → C4C 10-04 23:43
PROVIDERS: Emergency Medicine; Family Medicine; Internal Medicine; Internal Medicine Cardiovascular Disease; Internal Medicine Pulmonary Disease
PROC: B246YZZ Ultrasonography of Right and Left Heart using Other Contrast (ICD-10-PCS; principal; 2016-09-30)
PROC: 5A1955Z Respiratory Ventilation, Greater than 96 Consecutive Hours (ICD-10-PCS; 2016-09-30)
PROC: 0BH17EZ Insertion of Endotracheal Airway into Trachea, Via Natural or Artificial Opening (ICD-10-PCS; 2016-09-30)
DX: T42.4X1A Poisoning by benzodiazepines, accidental (unintentional), initial encounter (principal); J69.0 Pneumonitis due to inhalation of food and vomit; I46.9 Cardiac arrest, cause unspecified; J96.00 Acute respiratory failure, unspecified whether with hypoxia or hypercapnia; J96.01 Acute respiratory failure with hypoxia; G93.1 Anoxic brain damage, not elsewhere classified; E87.2 Acidosis; E87.0 Hyperosmolality and hypernatremia; T51.0X1A Toxic effect of ethanol, accidental (unintentional), initial encounter; F41.9 Anxiety disorder, unspecified; F32.9 Major depressive disorder, single episode, unspecified; E87.6 Hypokalemia; F17.210 Nicotine dependence, cigarettes, uncomplicated; T40.1X1A Poisoning by heroin, accidental (unintentional), initial encounter; F11.10 Opioid abuse, uncomplicated; Z66 Do not resuscitate
CPT/HCPCS: 36600; 70450; 71010; 80048; 80053; 80074; 80076; 80202; 80307; 81003; 82308; 82550; 82553; 82803; 82947; 83036; 83605; 83735; 83880; 84132; 84484; 85025; 85610; 85730; 86850; 86900; 86901; 87040; 87070; 87205; 87806; 93005; 93306; 94002; 94003; 94640; 94760; 95816; 96360; 99291; C9113; G0480; J0360; J1650; J1815; J1940; J1953; J2060; J2250; J2270; J2405; J2543; J3010; J3370; J3475; J3490